=== PATIENT | female | born 1985 | race Caucasian/White ===

== ENCOUNTER 2020-01-07 18:56 | Emergency (ER) | payer OTHER ==
[2020-01-07 19:04] VITALS: BP 135/90
--- NOTE | 2020-01-07 19:32 | ER Document Report ---
HPI - HPI Time Seen by Provider: 01/07/20 19:16 Pain Level: 3 Notes: Patient is a 34-year-old female with a history of bulging disks to her back and thyroid disease who presents complaining of left elbow pain, left upper buttock pain, and bilateral low back pain status post fall prior to arrival. Patient states that she slipped walking down steps and landed on her back/elbow. Patient states that she has been able to ambulate since then, but does have a limp because of the pain. The pain does not radiate. Patient does not believe anything is obviously broken, but came for evaluation. She did not hit her head or lose conscious. Denies drug allergies. No other concerns or complaints at this time. She does not want any Tylenol or Motrin. Denies any headache, fever, head injury, neck pain, changes in vision/speech/mentation/hearing, URI, sore throat, chest pain, palpitations, syncope, cough, shortness of breath, wheeze, dyspnea, abdominal pain, nausea/vomiting/diarrhea, urinary retention, dysuria, hematuria, loss of control of bowel or bladder, numbness/tingling, saddle anesthesia, muscle paralysis/weakness, or rash. - ROS Systems Reviewed and Negative: Yes All other systems reviewed and negative - REPRODUCTIVE Reproductive: DENIES: : Past Medical History - Social History Smoking Status: Never Smoker Chew tobacco use (# tins/day): No Drug Abuse: None Family History: Reviewed & Not Pertinent Patient has suicidal ideation: No Patient has homicidal ideation: No Vertical Provider Document - CONSTITUTIONAL Agree With Documented VS: Yes Notes: PHYSICAL EXAMINATION: GENERAL: Well-appearing, well-nourished and in no acute distress. LUNGS: Breath sounds clear to auscultation bilaterally and equal. No wheezes rales or rhonchi. HEART: Regular rate and rhythm without murmurs, rubs, gallops. ABDOMEN: Soft, nontender, nondistended abdomen. No guarding, no rebound. No m asses appreciated. Normal bowel sounds present. No CVA tenderness bilaterally. No pulsatile mass Musculoskeletal: Lt elbow: FROM. strength 5+/5. N/V intact distal. + tenderness directly to olecranon. No other upper extremity tenderness noted. LE's b/l: FROM to passive/active. Strength 5+/5. No deficits noted. No bony tenderness of extremities. Back: FROM to passive/active. Strength 5+/5. No vertebral point tenderness, stepoffs, or deformities. No other bony tenderness, erythema, swelling, or ecchymosis. SLR negative b/l. + tenderness to the L-paraspinal mm b/l. Mild spasming. + left SI jt tenderness. No foot drop Extremities: No cyanosis, clubbing, or edema b/l. Peripheral pulses 2+. Capillary refill less than 2 seconds. NEUROLOGICAL: Normal speech, antalgic gait. Normal sensory, motor exams. Reflexes 2+ b/l. PSYCH: Normal mood, normal affect. SKIN: Warm, Dry, normal turgor, no rashes or lesions noted. - INFECTION CONTROL TRAVEL OUTSIDE OF THE [place] IN LAST 30 DAYS: No Course - Re-evaluation Re-evalutation: 01/07/20 Patient is an afebrile, well-hydrated, 34-year-old female who presents to the ED with acute low back pain and left elbow pain s/p fall. Vitals are acceptable. PE is otherwise unremarkable for any neurovascular compromise, obvious tendon/ligament rupture, obvious fracture/dislocation, septic joint. Patient declined any pain medicine at this time. She has no significant tachycardia, tachypnea, or hypoxia. She is nontoxic-appearing and is tolerating p.o. without difficulties. There are no signs of infection. No other red flag symptoms noted. X-rays unremarkable. No other labs or imaging warranted at this time based on H&P. Low suspicion for any meningitis, fracture, expanding/ruptured AAA, cauda equina syndrome, epidural mass lesion/abscess, herniated disc causing severe spinal stenosis, or other systemic infection at this time. Patient is aware that this condition can change from initial presentation and that she needs monitor symptoms closely for any acute changes. I will send her home with a prescription for Robaxin and Motrin. Conservative measures otherwise for symptoms. Recheck with your PCM in 3-5 days. Consider consult with orthopedic/physical therapy. Return to the ED with any worsening/concerning symptoms otherwise as reviewed discharge. Patient is in agreement. - Vital Signs Vital signs: Temp Pulse Resp BP Pulse Ox 98.6 F 99 18 135/90 H 99 01/07/20 19:03 01/07/20 19:03 01/07/20 19:03 01/07/20 19:03 01/07/20 19:03 Discharge - Discharge Clinical Impression: Left elbow pain Low back pain Qualifiers: Chronicity: acute Back pain laterality: bilateral Sciatica presence: without sciatica Qualified Code(s): M54.5 - Low back pain Condition: Stable Disposition: HOME, SELF-CARE Instructions: Muscle Relaxers ([facility]) Additional Instructions: Rest, Ice, Compression, Elevation Tylenol/ibuprofen as needed Light stretches daily Strength exercises as able Moist heat and massage may help F/u with your PCP in 3-5 days for a recheck Consider consult(s) with Orthopedics/physical therapy for ongoing/worsening symptoms Return to the ED with any worsening symptoms and/or development of fever, headache, chest pain, palpitations, syncope, shortness of breath, trouble breathing, abdominal pain, n/v/d, muscle weakness/paralysis, numbness/tingling, swelling, redness, or other worsening symptoms that are concerning to you. Prescriptions: Ibuprofen [Motrin 800 mg Tablet] 800 mg PO Q8H PRN #15 tab PRN Reason: Methocarbamol [Robaxin 750 mg Tablet] 750 mg PO TID PRN #10 tablet PRN Reason: Forms: Elevated Blood Pressure Referrals: [facility] [Provider Group] - Follow up as needed
--- NOTE | 2020-01-07 20:14 | RADIOLOGY REPORT (SQ) ---
4 VIEWS OF LEFT ELBOW EXAM DATE: 01/07/2020 7:29 PM [facility] SPECIALIST HISTORY: Elbow pain post fall. COMPARISON: None. FINDINGS: No acute fracture or dislocation is seen. The joint spaces are preserved. No elbow joint effusion is seen. IMPRESSION: No acute fracture or malalignment.
--- NOTE | 2020-01-07 20:15 | RADIOLOGY REPORT (SQ) ---
5 VIEWS OF LUMBAR SPINE EXAM DATE: 01/07/2020 7:29 PM COLLECTIONS OFFICER HISTORY: Lower back pain. COMPARISON: None. FINDINGS: No acute compression fracture is seen. Normal lumbar alignment. The disc spaces and facet joints are intact. The sacroiliac joints are preserved. No evidence of spondylolysis on the oblique views. IMPRESSION: No acute lumbar findings are seen.
--- NOTE | 2020-01-07 20:15 | RADIOLOGY REPORT (SQ) ---
AP PELVIS EXAM DATE: 01/07/2020 7:29 PM DINING ROOM ATTENDANT [place] HISTORY: Pelvic pain post fall. COMPARISON: None. FINDINGS: No acute fracture or dislocation is seen. The joint spaces are preserved. No radiopaque foreign body is identified. IMPRESSION: No acute fracture or malalignment.
== END 2020-01-07 20:35 | disposition home or self-care (01) ==
LOC: ER 18:56
DX: M25.522 Pain in left elbow (principal); M54.5 Low back pain; M79.10 Myalgia, unspecified site; W10.9XXA Fall (on) (from) unspecified stairs and steps, initial encounter
CPT/HCPCS: 72110; 72170; 99283

== ENCOUNTER 2020-05-09 10:16 | Emergency (ER) | payer OTHER ==
[2020-05-09] MEDS ORDERED: IBUPROFEN 600 MG TABLET PO ONE (10:25)
--- NOTE | 2020-05-09 10:25 | ER Document Report ---
HPI - HPI Patient complains to provider of: Bilateral Knee pain Time Seen by Provider: 05/09/20 10:21 Pain Level: 4 Context: 34-year-old female presents to the emergency room complaining of worsening chronic bilateral knee pain for the past week. States she saw her primary care physician on is waiting for a referral for x-rays and a specialist. Denies any trauma or injury. Has been taking Tylenol with minimal relief. No history of previous trauma or injury to her knees. States is able to walk but is painful. Denies . Associated Symptoms: None Exacerbated by: Walking Relieved by: Remaining still Similar symptoms previously: No Recently seen / treated by doctor: Yes - PMD last - ROS Systems Reviewed and Negative: Yes All other systems reviewed and negative - CONSTITUTIONAL Constitutional: DENIES: Fever - NEURO Neurology: DENIES: Weakness - RESPIRATORY Respiratory: DENIES: Trouble Breathing - URINARY Urinary: DENIES: Dysuria - REPRODUCTIVE Reproductive: DENIES: : - MUSCULOSKELETAL Musculoskeletal: REPORTS: Extremity pain. DENIES: Back Pain - DERM Skin Color: Normal Skin Problems: None Past Medical History - General Information source: Patient - Social History Smoking Status: Never Smoker Frequency of alcohol use: Occasional Drug Abuse: None Family History: Reviewed & Not Pertinent Patient has homicidal ideation: No Endocrine Medical History: Reports: Hx Diabetes Mellitus Type 2 Vertical Provider Document - CONSTITUTIONAL Agree With Documented VS: Yes Exam Limitations: No Limitations General Appearance: Mild Distress - INFECTION CONTROL TRAVEL OUTSIDE OF THE [place] IN LAST 30 DAYS: No - HEENT HEENT: Atraumatic, Normocephalic - NECK Neck: Normal Inspection, Supple, Thyroid Normal - RESPIRATORY Respiratory: Breath Sounds Normal, No Respiratory Distress, Chest Non-Tender - BACK Back: Normal Inspection - MUSCULOSKELETAL/EXTREMETIES Musculoskeletal/Extremeties: Non-Tender - Knees are nontender to palpation, no effusion, no ballottement. Painful range of motion with flexion and extension of the bilateral knees. Negative anterior posterior drawer, negative Monet's, negative John's. - NEURO Level of Consciousness: Awake, Alert Motor/Sensory: No Motor Deficit, No Sensory Deficit Deep Tendon Reflexes: 3+ Notes: Positive pedal pulses bilaterally. Gait not tested secondary to pain - DERM Integumentary: Warm, Dry, No Rash Course - Re-evaluation Re-evalutation: 05/09/20 12:14 Patient is resting comfortably with decreased pain. Reviewed x-ray results with patient. Ambulatory with a steady gait. Neurovascularly intact. Counseled to continue with Tylenol and or Motrin as needed for pain. Counseled on need to follow-up outpatient with orthopedist as discussed. On-call physician was provided. Patient was given strict return to the emergency room guidelines. Return for any new or worsening symptoms. All questions were answered. Patient verbalized understanding and agrees with plan of care. 05/09/20 13:42 - Vital Signs Vital signs: Temp Pulse Resp BP Pulse Ox 98.2 F 83 16 117/63 97 05/09/20 10:20 05/09/20 10:20 05/09/20 10:20 05/09/20 10:20 05/09/20 10:20 - Diagnostic Test Radiology reviewed: Reports reviewed Discharge - Discharge Clinical Impression: Bilateral knee pain Qualifiers: Chronicity: acute Qualified Code(s): M25.561 - Pain in right knee Condition: Stable Disposition: HOME, SELF-CARE Instructions: Suspected Internal Knee Injury ([facility]), Knee Exercise Program ([facility]) Additional Instructions: Tylenol and or Motrin as needed for pain. Outpatient follow-up with orthopedics as discussed. Return for any new or worsening symptoms. Referrals: ETELVINA ALVARADO DO [ACTIVE STAFF] - Follow up as needed
--- NOTE | 2020-05-09 11:53 | RADIOLOGY REPORT (SQ) ---
EXAM DESCRIPTION: KNEE BILATERAL 1-2 VIEWS IMAGES COMPLETED DATE/TIME: 05/09/2020 11:45 am REASON FOR STUDY: pain COMPARISON: None. NUMBER OF VIEWS: Four views. TECHNIQUE: AP and lateral radiographic images acquired of the right and left knee. LIMITATIONS: None. FINDINGS: MINERALIZATION: Normal. BONES: No acute fracture or dislocation. No worrisome bone lesions. No significant osteophytes. JOINT: No effusion. No chondrocalcinosis. OTHER: No other significant finding. IMPRESSION: NEGATIVE STUDY OF THE RIGHT AND LEFT KNEES. NO EXPLANATION FOR PAIN. TECHNICAL DOCUMENTATION: JOB ID: [id number] 2010 [employer]- All Rights Reserved Reading location - IP/workstation name: [email or web address]
[2020-05-09 12:23] VITALS: BP 116/88
== END 2020-05-09 12:23 | disposition home or self-care (01) ==
LOC: ER 10:16
DX: M25.561 Pain in right knee (principal); M25.562 Pain in left knee; E11.9 Type 2 diabetes mellitus without complications
CPT/HCPCS: 99283